=== PATIENT | female | born 1960 | race African-American/Black ===

== ENCOUNTER 2016-04-22 10:43 | Inpatient (IN) | payer BC, MEDICARE ==
--- NOTE | ~2016-04-22 | CN ---
Consultation Report [facility] [address] [place]. 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 She has DJD and has had back surgery and is followed by Pain Management, also history of asthma, status post cholecystectomy, hysterectomy, and lysis of adhesions, tonsillectomy. Also has history of hypertension. SOCIAL HISTORY: Negative EtOH or nicotine. FAMILY HISTORY: Negative for colon cancer. She has past history of colon polyps and diverticular disease. She is admitted with potassium of 2.9, is now up to 4.1. White count 11,500, hemoglobin 15 on admission. LFTs negative. Lipase is normal. INR normal. PHYSICAL EXAMINATION: GENERAL: Well-developed, well-nourished white female, alert. HEENT: Anicteric. NECK: Negative. CHEST: Clear to percussion. HEART: Regular rate and rhythm without murmur or gallop. ABDOMEN: Soft. Some tenderness to epigastrium. Bowel sounds are present. J-tube noted. EXTREMITIES: Grossly intact. ASSESSMENT: 1. Gastroparesis, nausea, vomiting, gastroesophageal reflux disease, status post laparoscopic Diane as dictated, and some abdominal pain, chest pain as well. 2. Chronic back pain, followed by Pain Management. 3. Asthma. 4. Hypertension. 5. Hypokalemia, now corrected. SUGGESTION: 1. Agree with beginning clear liquids. 2. Continue IV Reglan, Phenergan, and Protonix. We will continue to follow with you. SHAILESH/HAMIDA Bernardo Consultation Report [facility] [address] [place]. [address] NAME: DOLLY BROWN : 62 STATUS : ADM IN PAT#: [id number] AGE: 56 ADM/REG DATE : 04/22/16 MR#: [id number] REPORT SERV DATE: 04/23/16 DICTATED BY: BERNARDO CASTILLO DATE: 04/23/16 REPORT STATUS : Draft TRANSCRIBED BY: MODL DATE: 04/23/16 Karthik Castillo / [id number] CC: MD Sarah Nguyen M.D.
--- NOTE | ~2016-04-22 | DS ---
Discharge Summary [facility] [address] [facility] [place]. [address] NAME: DOLLY BROWN : 62 STATUS : DIS IN PAT#: [id number] AGE: 56 ADM/REG DATE : 04/22/16 MR#: [id number] REPORT SERV DATE: 04/25/16 DICTATED BY: VERONICA CASTILLO DATE: 04/24/16 REPORT STATUS : Draft TRANSCRIBED BY: HAMIDA DATE: 04/24/16 ADMISSION DATE: 04/22/2016 DISCHARGE DATE: 04/24/2016 REASON FOR ADMISSION: Intractable nausea, vomiting, and gastroparesis. HISTORY OF PRESENT ILLNESS: Please refer Dr. Linnea Gonzalez' H and P dated 04/22/2016 for complete details regarding the patient's admission. In brief, the patient was admitted for exacerbation of gastroparesis. HOSPITAL COURSE: The patient had an uncomplicated hospital course. The patient presented for a typical flareup of her gastroparesis. She was started on clear liquid diet. Dr. Germain was consulted. I assumed care of this patient on 04/23/2016, for which she was starting to feel better. She was tolerating liquid diet. We advanced her diet. She was started on Reglan, but felt like she could not tolerate that medication. KUB was obtained as she had some mild lower abdominal pain. KUB showed no acute abnormality. The patient feels back to her baseline and is requesting to go home. She is tolerating food well. No nausea, no vomiting. She will be discharged home in a stable condition. DISCHARGE DIAGNOSES: 1. Exacerbation of gastroparesis, now resolved. 2. Intractable nausea and vomiting, now resolved. 3. Chronic pain, dependent on narcotics. 4. Hypokalemia, now resolved. PROCEDURES: Include consultation with Dr. Germain and NINA. DISCHARGE MEDICATIONS: Include oxycodone 50 mg every six hours scheduled, Phenergan p.r.n. nausea. FOLLOWUP: The patient will follow up with Dr. Germain as scheduled. MAGALIS/HAMIDA Veronica Castillo MD / [id number] CC: MD Sarah Nguyen M.D. David Collins, M.D.
--- NOTE | ~2016-04-22 | HP ---
History And Physical [facility] [address] [place]. [address] NAME: DOLLY BROWN : 62 STATUS : ADM IN [facility]#: [id number] AGE: 56 ADM/REG DATE : 04/22/16 MR#: [id number] REPORT SERV DATE: 04/22/16 DICTATED BY: LYNDON THORNTON DATE: 04/22/16 REPORT STATUS : Draft TRANSCRIBED BY: MODAlexandre DATE: 04/22/16 DATE OF ADMISSION: 04/22/2016 CHIEF COMPLAINT: Intractable nausea and vomiting. HISTORY OF PRESENT ILLNESS: A 56-year-old woman with past medical history of gastroparesis, followed by Dr. Germain, status post vagus nerve injury following Diane fundoplication for hiatal hernia. The patient has GJ tube for long period of time and episodic admissions for gastroparesis flare up. The patient reports that she has been having symptoms for the last week. States that she cannot keep anything down. Came into the hospital for further evaluation. Denies any chest pain, shortness of breath, palpitations, diaphoresis, fever, chills, hemoptysis, hematemesis, melena, hematochezia, loss of consciousness, slurred speech, localized weakness, headache, dizziness, dysuria, urgency, frequency. The patient reports associated abdominal pain. The patient was evaluated in the ED and found to have low potassium level. The patient was given IV Dilaudid and Phenergan, which did not resolve symptoms. Hospitalist consulted for further inpatient management. ALLERGIES: CODEINE, ASPIRIN, ZOFRAN, LEVOFLOXACIN. HOME MEDICATIONS: Include: 1. Oxycodone 15 mg p.o. every six hours. 2. Promethazine 25 mg p.o. every six hours p.r.n. PAST MEDICAL HISTORY: 1. As described above, gastroparesis. 2. Status post vagus nerve injury. 3. J-tube. SOCIAL HISTORY: No alcohol, tobacco, or illicit drug use. FAMILY HISTORY: Positive for cancer. PAST SURGICAL HISTORY: As described above. PHYSICAL EXAMINATION: VITAL SIGNS: Temperature 98.7, heart rate 121, blood pressure 126/85, respiratory rate 28, and O2 saturation 92 on room air. GENERAL: In mild distress secondary to nausea and vomiting. HEENT: EOMI, PERRLA. Anicteric sclerae. Nonerythematous pharynx. NECK: Supple. No JVD. No lymphadenopathy. RESPIRATORY: Clear to auscultation. No wheezes, rhonchi, or crackles. CARDIOVASCULAR: Tachy. ABDOMEN: J-tube noted, diffuse abdominal pain. No rebound. No distention. No guarding. No peritoneal signs. EXTREMITIES: No cyanosis. Moves all. NEUROLOGICAL: Alert and oriented x3. Nonfocal. History And Physical [address] [address] NAME: DOLLY BROWN [place] : 62 STATUS : ADM IN [facility]#: [id number] AGE: 56 ADM/REG DATE : 04/22/16 MR#: [id number] REPORT SERV DATE: 04/22/16 DICTATED BY: LYNDON THORNTON DATE: 04/22/16 REPORT STATUS : Draft TRANSCRIBED BY: HAMIDA DATE: 04/22/16 LABORATORY DATA: WBC of 11.5, hemoglobin 15.4, hematocrit 45.8, platelets 292. Sodium 140, potassium 2.9, chloride 100, bicarbonate 29, BUN 25, creatinine 0.94, glucose 119, magnesium 3.4, lipase 49. Troponin less than 0.02. IMAGING: Chest x-ray, PA and lateral impression, no acute process. ASSESSMENT: 1. Gastroparesis flare up. 2. Hypertension. 3. Chronic pain syndrome. 4. Hypokalemia. 5. Sinus tach secondary to gastroparesis flare up. PLAN: The patient will be admitted to telemetry. N.p.o. Consult Dr. Germain. IV fluids, IV Reglan. Appropriate pain control and antiemetics. Electrolyte protocol. Labs in the morning. Further evaluation and management per clinical course. CODE STATUS: Full code. DVT prophylaxis, SCD. GI prophylaxis, PPI. Total time for history and physical, 35 minutes. RLV/MODL Linnea Gonzalez MD / [id number] CC: MD Sarah Nguyen M.D.
[~2016-04-22 10:43] MED LIST: ADVAIR INH; ADVAIR250 INH; AMB10 PEG; AMIT25 PO; ANUSOL-HC2.5 % RE; CARASPUDL PEG; CARASPUDL PO; DOX25 PO; DURICEFSUS PO; FLEX PO; HUSBAND TO BRING; I20 PO; K250 PO; KCL20UDL PEG; KLONO5 PEG; METHOC500B PEG; METHOC500B PO; NEXIUM40 PEG; NEXIUM40 PO; OXYCOD PEG; OXYCOD PO; PR25 PEG; PR25 PO; PR25R PR; PROTONI1 PEG; PROTONIX PEG; PROVENTSOL INH; REG PEG; REG PO; REG5 PEG; REG5 PO; ROXICODONE15 MG PO; SINGULAIR1 PEG; SINGULAIR1 PO; SPIRO25 PEG; ZANAFLEX 4 MG TA4 MG PEG; ZANAFLEX2 MG PO; ZOFRAN8 PO; ZOFRANODT8 PEG
[2016-04-22 13:13] LABS: BASOPHILS 0.3 %; BASOPHILS ABSOLUTE 0.03 10/3/uL (0.0-0.16); EOSINOPHILS 0.1 %; EOSINOPHILS ABSOLUTE 0.01 10/3/uL (0.0-0.53); ER CBC TAT 0 Hrs 07 Mins; HEMATOCRIT 45.8 % (36.0-48.0); HEMOGLOBIN 15.4 g/dL (12.0-16.0); IMMATURE GRANULOCYTES 0.2 %; IMMATURE GRANULOCYTES ABSOLUTE 0.02 10/3/uL (0.0-0.11); LYMPHOCYTES 12.8 %; LYMPHOCYTES ABSOLUTE 1.48 10/3/uL (0.67-4.30); MANUAL DIFF NO %; MEAN CORPUS HGB CONC 33.6 g/dL (32.0-36.0); MEAN CORPUSCULAR HEMOGLOB 26.2 pg (26.0-34.0); MEAN CORPUSCULAR VOLUME 77.9 fL (80-100); MEAN PLATELET VOLUME 10.8 fL (9.2-13.0); MONOCYTES 7.8 %; NEUTROPHILS 78.8 %; NEUTROPHILS ABSOLUTE 9.08 10/3/uL (2.02-8.40); PLATELET COUNT 292 10/3/uL (150-400); RBC DISTRIBUTION WIDTH 14.7 % (12.0-16.0); RED CELL COUNT 5.88 10/6/uL (4.0-5.6); WHITE BLOOD CELLS 11.5 10/3/uL (4.5-10.5)
[2016-04-22 13:22] LABS: INTERNATIONAL NORMAL RATI 1.1 UNITS (-); PARTIAL THROMBO TIME 26.5 SEC (22.5-37.2); PROTIME (NOT ORD) 14.2 SEC (12.0-14.5)
[2016-04-22 13:29] LABS: CALCIUM, SERUM 9.4 MG/DL (8.5-10.4); CHEST PAIN PROFILE TAT 0 Hrs 23 Mins; CHLORIDE, SERUM 100 MMOL/L (96-112); CO2 (CARBON DIOXIDE) 29 MMOL/L (24-34); CREATININE 0.94 MG/DL (0.55-1.02); GFR AFRICAN AMERICAN 79 ML/MIN (>=60); GFR NON AFRICAN AMERICAN 68 ML/MIN (>=60); SGOT(AST) 25 U/L (5-40); SGPT(ALT) 32 U/L (5-65); SODIUM, SERUM 140 MMOL/L (135-148); TOTAL BILIRUBIN 0.5 MG/DL (0-1.2); TROPONIN I <0.02 NG/ML (<0.05)
[2016-04-22 13:31] LABS: ALBUMIN 5.1 G/DL (3.5-5.0); ALKALINE PHOSPHATASE 89 U/L (45-117); BUN (BLOOD UREA NITROGEN) 25 MG/DL (6-23); DIRECT BILIRUBIN < 0.1 MG/DL (0.0-0.4); GLUCOSE, SERUM 119 MG/DL (60-99); INDIRECT BILIRUBIN(NOT ORDER) 0.4 MG/DL (0.1-0.9); POTASSIUM, SERUM 2.9 MMOL/L (3.5-5.3); TOTAL PROTEIN 10.5 G/DL (6.0-8.5)
[2016-04-22] MEDS ORDERED: ROXICODONE15 MG PO (15:47)
[2016-04-22] MEDS ORDERED: PR25 PO (15:48)
[2016-04-23 03:43] LABS: BASOPHILS 0.3 %; BASOPHILS ABSOLUTE 0.03 10/3/uL (0.0-0.16); EOSINOPHILS 0.2 %; EOSINOPHILS ABSOLUTE 0.02 10/3/uL (0.0-0.53); HEMATOCRIT 43.6 % (36.0-48.0); HEMOGLOBIN 14.3 g/dL (12.0-16.0); IMMATURE GRANULOCYTES 0.2 %; IMMATURE GRANULOCYTES ABSOLUTE 0.02 10/3/uL (0.0-0.11); LYMPHOCYTES 14.2 %; LYMPHOCYTES ABSOLUTE 1.32 10/3/uL (0.67-4.30); MEAN CORPUS HGB CONC 32.8 g/dL (32.0-36.0); MEAN CORPUSCULAR VOLUME 79.4 fL (80-100); MEAN PLATELET VOLUME 11.5 fL (9.2-13.0); MONOCYTES 15.9 %; MONOCYTES ABSOLUTE 1.48 10/3/uL (0.21-1.20); NEUTROPHILS 69.2 %; NEUTROPHILS ABSOLUTE 6.41 10/3/uL (2.02-8.40); PLATELET COUNT 244 10/3/uL (150-400); RBC DISTRIBUTION WIDTH 14.7 % (12.0-16.0); RED CELL COUNT 5.49 10/6/uL (4.0-5.6); WHITE BLOOD CELLS 9.3 10/3/uL (4.5-10.5)
[2016-04-23 03:44] LABS: MANUAL DIFF NO %
[2016-04-23 04:15] LABS: CHLORIDE, SERUM 110 MMOL/L (96-112); CREATININE 0.68 MG/DL (0.55-1.02); GFR AFRICAN AMERICAN 114 ML/MIN (>=60); GFR NON AFRICAN AMERICAN 98 ML/MIN (>=60); GLUCOSE, SERUM 126 MG/DL (60-99); TROPONIN I <0.02 NG/ML (<0.05)
[2016-04-23 04:20] LABS: POTASSIUM, SERUM 4.1 MMOL/L (3.5-5.3); SODIUM, SERUM 149 MMOL/L (135-148)
[2016-04-23 04:21] LABS: BUN (BLOOD UREA NITROGEN) 21 MG/DL (6-23); CALCIUM, SERUM 8.4 MG/DL (8.5-10.4); CO2 (CARBON DIOXIDE) 24 MMOL/L (24-34)
[2016-06-17] MEDS ORDERED: PROTONIX PO (14:52)
[2016-06-17] MEDS ORDERED: IMDUR30 PO (14:52)
[2016-06-17] MEDS ORDERED: LIPITOR20 PO (14:52)
== END 2016-04-24 13:12 | disposition home or self-care (01) | DRG 392 ==
LOC: ER 10:43 → CDU1 16:59 → ER/OF 17:46 → 4EA 17:50 → 7NO 19:45
PROVIDERS: Internal Medicine; Nurse Practitioner
DX: K31.84 Gastroparesis (principal); I10 Essential (primary) hypertension; E87.6 Hypokalemia; G89.4 Chronic pain syndrome; Z79.891 Long term (current) use of opiate analgesic
CPT/HCPCS: 71020; 74000; 80048; 80076; 83690; 83735; 84484; 85025; 85610; 85730; 93005; 96372; 96374; 96375; 99285; A9270-GY; C9113; J1170; J2550; J2765